=== PATIENT | male | born 1985 | race Caucasian/White ===

== ENCOUNTER 2020-12-13 20:00 | Emergency (ER) | payer SELFPAY ==
[2020-12-13] MEDS ORDERED: Lidocaine 1% PF 5 ML VIAL ONE (20:53)
[2020-12-13] MEDS ORDERED: Oxymetazoline HCl 0.05% (30 ML BOT) ONE (21:01)
[2020-12-13] MEDS ORDERED: Bacitracin 1 PK ONE (22:49)
[2020-12-13] MEDS ORDERED: Boostrix 0.5 ML (Tdap) VIAL ONE (22:49)
== END 2020-12-13 23:29 | disposition home or self-care (01) ==
LOC: ERS 20:00
DX: S01.25XA Open bite of nose, initial encounter (principal); S01.21XA Laceration without foreign body of nose, initial encounter; Z23 Encounter for immunization; W54.0XXA Bitten by dog, initial encounter
CPT/HCPCS: 12015; 90471; 90715